=== PATIENT | female | born 1990 | race Native Hawaiian/Other Pacific Islander ===

== ENCOUNTER 2016-11-30 10:09 | Outpatient (CLI) | payer MEDICAID | END 2016-11-30 10:10 | disposition home or self-care (01) | DX: Z11.3 Encounter for screening for infections with a predominantly sexual mode of transmission (principal) ==

== ENCOUNTER 2017-06-13 20:41 | Emergency (ER) | payer MEDICAID, OTHER ==
[2017-06-13 20:53] VITALS: BP 119/78
[2017-06-13 21:26] LABS: BILIRUBIN,URINE NEGATIVE (NEGATIVE)
--- NOTE | 2017-06-13 21:50 | ED Physician Documentation ---
History of Present Illness - Stated complaint Stated Complaint: FEMALE - Chief complaint Chief Complaint: Abd Pain - Additonal information Additional information: hx from pt UTI sx - hesitancy and dysuria no fever abd pain flank pain NV denies preg Review of Systems Constitutional: denies: Fever Cardiac: denies: Chest pain / pressure Respiratory: denies: Dyspnea GI: denies: Abdominal Pain : reports: Dysuria. denies: Now EGA PD PAST MEDICAL HISTORY - Present Medications Home Medications: Ambulatory Orders Medication Instructions Recorded Confirmed Levonorgestrel-Ethin Estradiol 1 tab PO DAILY 06/13/17 06/13/17 [Aviane-28 Tablet] Nitrofurantoin [Macrobid] 100 mg PO BID #13 capsule 06/13/17 - Allergies Allergies/Adverse Reactions: Allergies Allergy/AdvReac Type Severity Reaction Status Date / Time No Known Drug Allergies Allergy Verified 04/07/13 17:03 - Social History Smoking Status: Never smoker PD ED PE NORMAL - Vitals Vital signs reviewed: Yes - Cardiac Cardiac: RRR - Respiratory Respiratory: No respiratory distress, Clear bilaterally - Abdomen Abdomen: Soft, Non tender - Back Back: No CVA TTP - Derm Derm: Normal color Results - Vitals Vitals: Vital Signs - 24 hr 06/13/17 20:51 Temperature 36.8 C Heart Rate 73 Respiratory 18 Rate Blood Pressure 119/78 O2 Saturation 100 Oxygen O2 Source Room air - Labs Labs: Laboratory Tests 06/13/17 20:55 Urine Color YELLOW Urine Clarity CLEAR Urine pH 6.0 Ur Specific Sharon <=1.005 Urine Protein NEGATIVE Urine Glucose (UA) NEGATIVE Urine Ketones NEGATIVE Urine Occult Blood LARGE H Urine Nitrite NEGATIVE Urine Bilirubin NEGATIVE Urine Urobilinogen 0.2 (NORMAL) Ur Leukocyte Esterase SMALL H Urine RBC 0-5 Urine WBC 6-10 H Ur Squamous Epith Cells RARE Squamous Urine Bacteria Few Departure - Departure Disposition: 01 Home, Self Care Clinical Impression: UTI (urinary tract infection) Qualifiers: Urinary tract infection type: acute cystitis Hematuria presence: with hematuria Qualified Code(s): N30.01 - Acute cystitis with hematuria Condition: Good Instructions: ED UTI Cystitis Female Prescriptions: Nitrofurantoin [Macrobid] 100 mg PO BID #13 capsule Comments: Antibiotics can make your control less effective so use back up protection such as condoms this month Please follow up with your PMD for a urine recheck after completing the antibiotics Return if worse
[2017-06-13] MEDS: NITROFURANTOIN MACRO 100 MG CAPSULE PO STA (22:03)
[2017-06-13] MEDS ORDERED: NITROFURANTOIN MACRO 100 MG CAPSULE PO ONE (22:03)
[2017-06-13 22:14] LABS: HCG UR QUAL NEGATIVE
== END 2017-06-13 22:11 | disposition home or self-care (01) ==
LOC: ED 20:41
DX: N30.01 Acute cystitis with hematuria (principal)
CPT/HCPCS: 81001; 81025; 99283; A9270

== ENCOUNTER 2018-08-03 09:30 | Outpatient (CLI) | payer OTHER | END 2018-08-03 09:31 | disposition home or self-care (01) | LOC: LAB 09:30 | PROVIDERS: ATTEND Nurse Practitioner Gerontology | DX: Z13.89 Encounter for screening for other disorder (principal) | CPT/HCPCS: 86317; 86735; 86762; 86765; 86787 ==